=== PATIENT | male | born 1985 | race Caucasian/White ===

== ENCOUNTER 2018-09-15 03:40 | Inpatient (IN) | payer SELFPAY ==
[2018-09-15] MEDS ORDERED: Ketorolac 30 MG/ML SDV IVPUSH ONE ×2 (04:01→14:50)
[2018-09-15] MEDS ORDERED: Sodium Chloride 0.9% 1,000 ML IV ONE (04:01)
[2018-09-15] MEDS ORDERED: Diphtheria,Pertussis(Acell),Tetanus Vaccine 0.5 ML Syringe IM ONE (04:01)
[2018-09-15] MEDS ORDERED: Sodium Chloride 0.9% 2.5 ML Syringe FLUSH PRN (04:01)
[2018-09-15] MEDS ORDERED: Morphine 2 MG/ML Syringe IVPUSH ONE (04:01)
[2018-09-15] MEDS ORDERED: Sodium Chloride 0.9% 10 ML Syringe FLUSH PRN (04:01)
[2018-09-15] MEDS ORDERED: LORazepam 2 MG/ML SDV IVPUSH ONE (04:01)
[2018-09-15] MEDS ORDERED: Piperacillin/Tazobactam 3.375 GM in Sodium Chloride 0.9% 50 ML IV ONE (04:06)
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
[2018-09-15 04:39] LABS: CHLORIDE,CL 100 mmol/L (98-107); SODIUM,NA 136 mmol/L (136-148)
--- NOTE | 2018-09-15 04:51 | CR ---
INDICATION: prior sent. 1 image. shortness of breath. TECHNIQUE: Chest 1 view. COMPARISON: 02/10/09 FINDINGS: Cardiovascular and mediastinum: Heart size and vasculature are normal in caliber and appearance. Mediastinum is within normal limits. Lungs and pleural space: Lungs are clear. No sign of infiltrate or mass. No sign of pleural effusion. No pneumothorax. Bones and soft tissues: No significant findings. IMPRESSION: Unremarkable chest. Dictated by: Marbin Nieves MD @ 09/15/2018 04:48:31 (Electronically Signed)
[2018-09-15] MEDS ORDERED: HYDROmorphone 1 MG/ML Syringe IVPUSH ONE (05:29)
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
[2018-09-15] MEDS: Sodium Chloride 0.9% 1,000 ML IV SCH ×2 (11:43→22:07)
[2018-09-15] MEDS: Piperacillin/Tazobactam 3.375 GM in Sodium Chloride 0.9% 50 ML IV SCH ×3 (11:49→23:48)
--- NOTE | 2018-09-15 15:55 | CR ---
EXAM DATE: 09/15/18 PATIENT'S AGE: 33 Patient: SERINA CERRATO Facility: [place], [place] Site . Site : 1985 Study: XRay Extremity Right hand-09/15/2018 4:46:01 AM Ordering Physician: Ana Carlisle Final Report: INDICATION: Pain and swelling TECHNIQUE: Three views right hand COMPARISON: None FINDINGS: Bones: Alignment is normal. No fractures or bone lesions. Joint spaces: Unremarkable. Soft tissues: Soft tissue edema dorsal to the metacarpal bones. IMPRESSION: Soft tissue edema dorsal to the metacarpal bones. Dictated by Marbin Nieves MD @ 09/15/2018 4:49:36 AM Dictated by: Marbin Nieves MD @ 09/15/2018 04:49:41 (Electronic Signature) Report Signed by Proxy. [facility]OS[facility]ITALEmani
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
[2018-09-15] MEDS ORDERED: Acetaminophen/HYDROcodone 325-5 MG Tab PO PRN (16:31)
[2018-09-15] MEDS: Acetaminophen/HYDROcodone 325-5 MG Tab PO PRN ×2 (17:20→21:26)
[2018-09-16] MEDS: Acetaminophen/HYDROcodone 325-5 MG Tab PO PRN ×3 (01:57→19:51)
[2018-09-16] MEDS: Morphine 2 MG/ML Syringe IVPUSH PRN ×2 (04:39→07:27)
[2018-09-16] MEDS: Piperacillin/Tazobactam 3.375 GM in Sodium Chloride 0.9% 50 ML IV SCH ×4 (06:00→23:20)
[2018-09-16 06:48] LABS: CHLORIDE,CL 104 mmol/L (98-107); SODIUM,NA 136 mmol/L (136-148)
[2018-09-16] MEDS: Sodium Chloride 0.9% 1,000 ML IV SCH ×3 (07:32→23:19)
--- NOTE | 2018-09-16 09:09 | PCM.PN ---
- General Info Date of Service: 09/16/18 Subjective Update: The patient is a 33 year old male admitted for right hand cellulitis. He reports increased pain and swelling overnight. He tried to keep it in the sling , recommended by Dr. Ruiz, but found it hard. His white count is improving and blood cultures have been negative thus far. He denies chest pain, shortness of breath, abdominal pain, or fever/chills. - Review of Systems General: Reports: No Symptoms HEENT: Reports: No Symptoms Pulmonary: Reports: No Symptoms Gastrointestinal: Reports: No Symptoms Genitourinary: Reports: No Symptoms Musculoskeletal: Reports: Hand Pain Skin: Reports: Rash Neurological: Reports: No Symptoms Psychiatric: Reports: No Symptoms - Patient Data Vitals - Most Recent: Last Vital Signs Temp 98.2 F 09/16/18 08:00 Pulse 83 09/16/18 08:00 Resp 18 09/16/18 08:00 BP 122/60 09/16/18 08:00 Pulse Ox 99 09/16/18 08:00 Weight - Most Recent: 77.7 kg I&O - Last 24 Hours: Intake & Output 09/15/18 09/16/18 09/16/18 22:59 06:59 14:59 Intake Total 2115 1860 990 Output Total 300 425 Balance 1815 1435 990 Lab Results Last 24 Hours: Laboratory Results - last 24 hr 09/16/18 09/16/18 Range/Units 06:11 06:11 WBC 19.41 H (4.0-11.0) K/uL RBC 4.64 (4.50-5.90) M/uL Hgb 13.3 (13.0-17.0) g/dL Hct 39.6 (38.0-50.0) % MCV 85.3 (80.0-98.0) fL MCH 28.7 (27.0-32.0) pg MCHC 33.6 (31.0-37.0) g/dL RDW Std Deviation 43.6 (28.0-62.0) fl RDW Coeff of Lele 14 (11.0-15.0) % Plt Count 214 (150-400) K/uL MPV 8.80 (7.40-12.00) fL Neut % (Auto) 75.7 (48.0-80.0) % Lymph % (Auto) 7.6 L (16.0-40.0) % [place] % (Auto) 15.7 H (0.0-15.0) % Eos % (Auto) 0.9 (0.0-7.0) % Baso % (Auto) 0.1 (0.0-1.5) % Neut # (Auto) 14.7 H (1.4-5.7) K/uL Lymph # (Auto) 1.5 (0.6-2.4) K/uL [place] # (Auto) 3.0 H (0.0-0.8) K/uL Eos # (Auto) 0.2 (0.0-0.7) K/uL Baso # (Auto) 0.0 (0.0-0.1) K/uL Nucleated RBC % 0.0 /100WBC Nucleated RBCs # 0 K/uL Sodium 136 (136-148) mmol/L Potassium 4.3 (3.5-5.1) mmol/L Chloride 104 (98-107) mmol/L Carbon Dioxide 25.8 (21.0-32.0) mmol/L BUN 12 (7.0-18.0) mg/dL Creatinine 1.0 (0.8-1.3) mg/dL Est Cr Clr Drug Dosing 116.55 mL/min Estimated GFR (MDRD) > 60.0 ml/min Glucose 102 (74-106) mg/dL Calcium 8.1 L (8.5-10.1) mg/dL Total Bilirubin 0.5 (0.2-1.0) mg/dL AST 27 (15-37) IU/L ALT 72 H (14-63) IU/L Alkaline Phosphatase 88 (46-116) U/L Total Protein 6.4 (6.4-8.2) g/dL Albumin 2.3 L (3.4-5.0) g/dL Globulin 4.1 H (2.6-4.0) g/dL Albumin/Globulin Ratio 0.6 L (0.9-1.6) Tim Results Last 24 Hours: Microbiology 09/15/18 04:20 Aerobic Blood Culture - Preliminary Blood - Venous - Lab Draw NO GROWTH AFTER 1 DAY Anaerobic Blood Culture - Preliminary NO GROWTH AFTER 1 DAY 09/15/18 04:10 Aerobic Blood Culture - Preliminary Blood - Venous NO GROWTH AFTER 1 DAY Anaerobic Blood Culture - Preliminary NO GROWTH AFTER 1 DAY Med Orders - Current: Current Medications Hydrocodone Bitart/Acetaminophen ([place] 325-5 Mg) 2 tab PO Q4H PRN PRN Reason: Pain Last Admin: 09/16/18 01:57 Dose: 2 tab Piperacillin Sod/Tazobactam (Sod 3.375 gm/ Sodium Chloride) 50 mls @ 100 mls/ hr IV Q6H [facility] Last Admin: 09/16/18 06:00 Dose: 100 mls/hr Sodium Chloride (Normal Saline) 1,000 mls @ 125 mls/hr IV ASDIRECTED [facility] Last Admin: 09/16/18 07:32 Dose: 125 mls/hr Vancomycin HCl 1 gm/ Sodium (Chloride) 250 mls @ 250 mls/hr IV Q12H [facility] Last Admin: 09/16/18 00:17 Dose: 250 mls/hr Morphine Sulfate (Morphine) 1 mg IVPUSH Q2H PRN PRN Reason: Pain (severe 7-10) Last Admin: 09/16/18 07:27 Dose: 1 mg Sodium Chloride (Saline Flush) 10 ml FLUSH ASDIRECTED PRN PRN Reason: Keep Vein Open Sodium Chloride (Saline Flush) 2.5 ml FLUSH ASDIRECTED PRN PRN Reason: Keep Vein Open Vancomycin HCl (Pharmacy To Dose - Vancomycin) 1 dose .XX ASDIRECTED [facility] Discontinued Medications Hydrocodone Bitart/Acetaminophen ([place] 325-5 Mg) 1 tab PO Q4H PRN PRN Reason: Pain Diphtheria/Tetanus/Acell Pertussis (Adacel) 0.5 ml IM .ONCE ONE Stop: 09/15/18 04:02 Last Admin: 09/15/18 04:25 Dose: 0.5 ml Hydromorphone HCl (Dilaudid) 1 mg IVPUSH ONETIME ONE Stop: 09/15/18 05:30 Last Admin: 09/15/18 05:34 Dose: 1 mg Sodium Chloride (Normal Saline) 1,000 mls @ 999 mls/hr IV STAT ONE Stop: 09/15/18 05:01 Last Admin: 09/15/18 04:15 Dose: 999 mls/hr Vancomycin HCl 1 gm/ Sodium (Chloride) 250 mls @ 250 mls/hr IV ONETIME ONE Stop: 09/15/18 05:00 Last Admin: 09/15/18 04:24 Dose: 250 mls/hr Piperacillin Sod/Tazobactam (Sod 3.375 gm/ Sodium Chloride) 50 mls @ 100 mls/ hr IV ONETIME ONE Stop: 09/15/18 04:35 Last Admin: 09/15/18 05:26 Dose: 100 mls/hr Ketorolac Tromethamine (Toradol) 30 mg IVPUSH ONETIME ONE Stop: 09/15/18 04:02 Last Admin: 09/15/18 04:24 Dose: 30 mg Ketorolac Tromethamine (Toradol) 30 mg IVPUSH ONETIME ONE Stop: 09/15/18 14:51 Last Admin: 09/15/18 15:06 Dose: 30 mg Lorazepam (Ativan) 1 mg IVPUSH ONETIME ONE Stop: 09/15/18 04:02 Last Admin: 09/15/18 04:23 Dose: 1 mg Morphine Sulfate (Morphine) 2 mg IVPUSH ONETIME ONE Stop: 09/15/18 04:02 Last Admin: 09/15/18 04:23 Dose: 2 mg - Exam General: Alert, Oriented, Cooperative Lungs: Clear to Auscultation, Normal Respiratory Effort Cardiovascular: Regular Rate, Regular Rhythm GI/Abdominal Exam: Normal Bowel Sounds, Soft, Non-Tender, No Distention Extremities: No Pedal Edema Skin: Warm, Dry, Other (right hand cellulits not improving, erythema/swelling/ tenderness worse, streaking up arm improved) Neurological: No New Focal Deficit Psy/Mental Status: Alert, Normal Affect, Normal Mood - Problem List Review Problem List Initiated/Reviewed/Updated: Yes - My Orders Last 24 Hours: My Active Orders 09/15/18 11:23 Antiembolic Devices [RC] PER UNIT ROUTINE Intake and Output [RC] Q12H Vital Signs [RC] Q4H Sequential Compression Device [OM.PC] Routine Resuscitation Status Routine 09/15/18 11:30 Pharmacy to Dose - Vancomycin 1 dose .XX ASDIRECTED Piperacillin/Tazobactam [Piperacil-Tazobact] 3.375 gm Sodium Chloride 0.9% [ Normal Saline] 50 ml IV Q6H Sodium Chloride 0.9% [Normal Saline] 1,000 ml IV ASDIRECTED 09/15/18 12:30 Vancomycin [Vancocin] 1 gm Sodium Chloride 0.9% [Normal Saline] 250 ml IV Q12H - Plan Plan:: 1. Right hand cellulitis- white count improved but no real improvement in cellulitis, now with more swelling and pain. Continue Vancomycin and Zosyn, Blood cultures so far have been negative. Continue IVF. Dr. Ruiz consulted and plans to take to OR today for I&D. Continue norco/morphine for pain. Regular diet can be resumed once surgery is over. 2. Elevated LFTs- trending down, continue to follow
--- NOTE | 2018-09-16 09:12 | PCM.PN ---
- General Info Date of Service: 09/16/18 Admission Dx/Problem (Free Text): Admission Diagnosis/Problem Admission Diagnosis/Problem Cellulitis Functional Status: Reports: Pain Controlled, New Symptoms (more swelling and subjective pain) Pain Score: 6 - Review of Systems General: Reports: No Symptoms HEENT: Reports: No Symptoms Pulmonary: Reports: No Symptoms Genitourinary: Reports: No Symptoms Musculoskeletal: Reports: Arm Pain, Hand Pain Skin: Reports: Other (redness and swelling of the right hand dorsum. ) Neurological: Reports: No Symptoms Psychiatric: Reports: No Symptoms - Patient Data Vitals - Most Recent: Last Vital Signs Temp 98.2 F 09/16/18 08:00 Pulse 83 09/16/18 08:00 Resp 18 09/16/18 08:00 BP 122/60 09/16/18 08:00 Pulse Ox 99 09/16/18 08:00 Weight - Most Recent: 171 lb 4.787 oz I&O - Last 24 Hours: Intake & Output 09/15/18 09/16/18 09/16/18 23:59 07:59 15:59 Intake Total 2115 2850 Output Total 300 425 Balance 1815 2425 Lab Results Last 24 Hours: Laboratory Results - last 24 hr 09/16/18 09/16/18 Range/Units 06:11 06:11 WBC 19.41 H (4.0-11.0) K/uL RBC 4.64 (4.50-5.90) M/uL Hgb 13.3 (13.0-17.0) g/dL Hct 39.6 (38.0-50.0) % MCV 85.3 (80.0-98.0) fL MCH 28.7 (27.0-32.0) pg MCHC 33.6 (31.0-37.0) g/dL RDW Std Deviation 43.6 (28.0-62.0) fl RDW Coeff of Lele 14 (11.0-15.0) % Plt Count 214 (150-400) K/uL MPV 8.80 (7.40-12.00) fL Neut % (Auto) 75.7 (48.0-80.0) % Lymph % (Auto) 7.6 L (16.0-40.0) % [place] % (Auto) 15.7 H (0.0-15.0) % Eos % (Auto) 0.9 (0.0-7.0) % Baso % (Auto) 0.1 (0.0-1.5) % Neut # (Auto) 14.7 H (1.4-5.7) K/uL Lymph # (Auto) 1.5 (0.6-2.4) K/uL [place] # (Auto) 3.0 H (0.0-0.8) K/uL Eos # (Auto) 0.2 (0.0-0.7) K/uL Baso # (Auto) 0.0 (0.0-0.1) K/uL Nucleated RBC % 0.0 /100WBC Nucleated RBCs # 0 K/uL Sodium 136 (136-148) mmol/L Potassium 4.3 (3.5-5.1) mmol/L Chloride 104 (98-107) mmol/L Carbon Dioxide 25.8 (21.0-32.0) mmol/L BUN 12 (7.0-18.0) mg/dL Creatinine 1.0 (0.8-1.3) mg/dL Est Cr Clr Drug Dosing 116.55 mL/min Estimated GFR (MDRD) > 60.0 ml/min Glucose 102 (74-106) mg/dL Calcium 8.1 L (8.5-10.1) mg/dL Total Bilirubin 0.5 (0.2-1.0) mg/dL AST 27 (15-37) IU/L ALT 72 H (14-63) IU/L Alkaline Phosphatase 88 (46-116) U/L Total Protein 6.4 (6.4-8.2) g/dL Albumin 2.3 L (3.4-5.0) g/dL Globulin 4.1 H (2.6-4.0) g/dL Albumin/Globulin Ratio 0.6 L (0.9-1.6) Tim Results Last 24 Hours: Microbiology 09/15/18 04:20 Aerobic Blood Culture - Preliminary Blood - Venous - Lab Draw NO GROWTH AFTER 1 DAY Anaerobic Blood Culture - Preliminary NO GROWTH AFTER 1 DAY 09/15/18 04:10 Aerobic Blood Culture - Preliminary Blood - Venous NO GROWTH AFTER 1 DAY Anaerobic Blood Culture - Preliminary NO GROWTH AFTER 1 DAY Med Orders - Current: Current Medications Hydrocodone Bitart/Acetaminophen ([place] 325-5 Mg) 2 tab PO Q4H PRN PRN Reason: Pain Last Admin: 09/16/18 01:57 Dose: 2 tab Piperacillin Sod/Tazobactam (Sod 3.375 gm/ Sodium Chloride) 50 mls @ 100 mls/ hr IV Q6H [facility] Last Admin: 09/16/18 06:00 Dose: 100 mls/hr Sodium Chloride (Normal Saline) 1,000 mls @ 125 mls/hr IV ASDIRECTED [facility] Last Admin: 09/16/18 07:32 Dose: 125 mls/hr Vancomycin HCl 1 gm/ Sodium (Chloride) 250 mls @ 250 mls/hr IV Q12H [facility] Last Admin: 09/16/18 00:17 Dose: 250 mls/hr Morphine Sulfate (Morphine) 1 mg IVPUSH Q2H PRN PRN Reason: Pain (severe 7-10) Last Admin: 09/16/18 07:27 Dose: 1 mg Sodium Chloride (Saline Flush) 10 ml FLUSH ASDIRECTED PRN PRN Reason: Keep Vein Open Sodium Chloride (Saline Flush) 2.5 ml FLUSH ASDIRECTED PRN PRN Reason: Keep Vein Open Vancomycin HCl (Pharmacy To Dose - Vancomycin) 1 dose .XX ASDIRECTED [facility] Discontinued Medications Hydrocodone Bitart/Acetaminophen ([place] 325-5 Mg) 1 tab PO Q4H PRN PRN Reason: Pain Diphtheria/Tetanus/Acell Pertussis (Adacel) 0.5 ml IM .ONCE ONE Stop: 09/15/18 04:02 Last Admin: 09/15/18 04:25 Dose: 0.5 ml Hydromorphone HCl (Dilaudid) 1 mg IVPUSH ONETIME ONE Stop: 09/15/18 05:30 Last Admin: 09/15/18 05:34 Dose: 1 mg Sodium Chloride (Normal Saline) 1,000 mls @ 999 mls/hr IV STAT ONE Stop: 09/15/18 05:01 Last Admin: 09/15/18 04:15 Dose: 999 mls/hr Vancomycin HCl 1 gm/ Sodium (Chloride) 250 mls @ 250 mls/hr IV ONETIME ONE Stop: 09/15/18 05:00 Last Admin: 09/15/18 04:24 Dose: 250 mls/hr Piperacillin Sod/Tazobactam (Sod 3.375 gm/ Sodium Chloride) 50 mls @ 100 mls/ hr IV ONETIME ONE Stop: 09/15/18 04:35 Last Admin: 09/15/18 05:26 Dose: 100 mls/hr Ketorolac Tromethamine (Toradol) 30 mg IVPUSH ONETIME ONE Stop: 09/15/18 04:02 Last Admin: 09/15/18 04:24 Dose: 30 mg Ketorolac Tromethamine (Toradol) 30 mg IVPUSH ONETIME ONE Stop: 09/15/18 14:51 Last Admin: 09/15/18 15:06 Dose: 30 mg Lorazepam (Ativan) 1 mg IVPUSH ONETIME ONE Stop: 09/15/18 04:02 Last Admin: 09/15/18 04:23 Dose: 1 mg Morphine Sulfate (Morphine) 2 mg IVPUSH ONETIME ONE Stop: 09/15/18 04:02 Last Admin: 09/15/18 04:23 Dose: 2 mg - Exam General: Alert, Oriented, Cooperative, No Acute Distress HEENT: Pupils Equal, EOMI Lungs: Clear to Auscultation, Normal Respiratory Effort Cardiovascular: Regular Rate, Regular Rhythm Extremities: Joint Swelling, Arm Pain, Increased Warmth, Redness Peripheral Pulses: 4+: Radial (R) Skin: Warm, Dry, Other (redness and swelling with previous incision now with some softening. ) Neurological: No New Focal Deficit Psy/Mental Status: Alert, Normal Affect, Normal Mood. No: Agitated - Problem List & Annotations (1) Cellulitis SNOMED Code(s): 527966505 Code(s): L03.90 - CELLULITIS, UNSPECIFIED Status: Acute Current Visit: Yes Qualifiers: Qualified Code(s): L03.113 - Cellulitis of right upper limb - Problem List Review Problem List Initiated/Reviewed/Updated: Yes - My Orders Last 24 Hours: My Active Orders 09/15/18 16:28 Acetaminophen/HYDROcodone [[place] 325-5 MG] 2 tab PO Q4H PRN Morphine 1 mg IVPUSH Q2H PRN 09/16/18 Breakfast NPO [Nothing Per Oral Diet] [DIET] - Assessment Assessment:: worsening cellulitis with likely deep space infection into the mcp joint area. Failed conservative measures and though lymphangitic involvement better the dorsal hand infection is significantly more swollen and red. Plan I and D in the operating room with copious irrigation, cultures and continued IV antibiotics post op. - Plan Plan:: Continue Vancomycin and Zosyn To the OR for I and D this am with copious washout. NPO since midnight but sips with medications OK Continue elevation Risks benefits and alternatives discussed with him and informed consent obtained. All questions answered.
[2018-09-16] MEDS ORDERED: Bupivacaine 0.25%/EPINEPHrine 1:200,000 10 ML SDV ONE (10:15)
[2018-09-16] MEDS ORDERED: Ondansetron 4 MG/2 ML SDV ONE (10:36)
[2018-09-16] MEDS ORDERED: Lidocaine 2% 5 ML SDV ONE (10:36)
[2018-09-16] MEDS ORDERED: Ketorolac 30 MG/ML SDV ONE (10:36)
[2018-09-16] MEDS ORDERED: Dexamethasone 4 MG/ML 5 ML MDV ONE (10:36)
[2018-09-16] MEDS ORDERED: fentaNYL 100 MCG/2 ML SDV ONE (10:37)
[2018-09-16] MEDS ORDERED: Propofol 200 MG/20 ML SDV ONE (10:37)
[2018-09-16] MEDS ORDERED: Midazolam 1 MG/ML 2 ML SDV ONE (10:37)
--- NOTE | 2018-09-16 11:19 | PCM.PREANE ---
Preanesthetic Assessment - Anesthesia/Transfusion/Family Hx Transfusion History: Prior Transfusion Without Reaction - Review of Systems General: No Symptoms Cardiovascular: No Symptoms Neurological: No Symptoms Other: Reports: None - Physical Assessment NPO Status Date: 09/15/18 NPO Status Time: 23:55 O2 Sat by Pulse Oximetry: 99 Respiratory Rate: 18 Vital Signs: Last Vital Signs Temp 36.8 C 09/16/18 08:00 Pulse 83 09/16/18 08:00 Resp 18 09/16/18 08:00 BP 122/60 09/16/18 08:00 Pulse Ox 99 09/16/18 08:00 Height: 1.88 m Weight: 77.7 kg ASA Class: 2E Mental Status: Alert & Oriented x3 Airway Class: Mallampati = 1 Dentition: Reports: Normal Dentition Lungs: Clear to Auscultation - Lab Values: Laboratory Last Values WBC 19.41 K/uL (4.0-11.0) H 09/16/18 06:11 RBC 4.64 M/uL (4.50-5.90) 09/16/18 06:11 Hgb 13.3 g/dL (13.0-17.0) 09/16/18 06:11 Hct 39.6 % (38.0-50.0) 09/16/18 06:11 MCV 85.3 fL (80.0-98.0) 09/16/18 06:11 MCH 28.7 pg (27.0-32.0) 09/16/18 06:11 MCHC 33.6 g/dL (31.0-37.0) 09/16/18 06:11 RDW Std Deviation 43.6 fl (28.0-62.0) 09/16/18 06:11 RDW Coeff of Lele 14 % (11.0-15.0) 09/16/18 06:11 Plt Count 214 K/uL (150-400) 09/16/18 06:11 MPV 8.80 fL (7.40-12.00) 09/16/18 06:11 Neut % (Auto) 75.7 % (48.0-80.0) 09/16/18 06:11 Lymph % (Auto) 7.6 % (16.0-40.0) L 09/16/18 06:11 [place] % (Auto) 15.7 % (0.0-15.0) H 09/16/18 06:11 Eos % (Auto) 0.9 % (0.0-7.0) 09/16/18 06:11 Baso % (Auto) 0.1 % (0.0-1.5) 09/16/18 06:11 Neut # (Auto) 14.7 K/uL (1.4-5.7) H 09/16/18 06:11 Lymph # (Auto) 1.5 K/uL (0.6-2.4) 09/16/18 06:11 [place] # (Auto) 3.0 K/uL (0.0-0.8) H 09/16/18 06:11 Eos # (Auto) 0.2 K/uL (0.0-0.7) 09/16/18 06:11 Baso # (Auto) 0.0 K/uL (0.0-0.1) 09/16/18 06:11 Add Manual Diff YES 09/15/18 04:10 Neutrophils % (Manual) 75 % (48.0-80.0) 09/15/18 04:10 Band Neutrophils % 5 % 09/15/18 04:10 Lymphocytes % (Manual) 9 % (16.0-40.0) L 09/15/18 04:10 Monocytes % (Manual) 11 % (0.0-15.0) 09/15/18 04:10 Nucleated RBC % 0.0 /100WBC 09/16/18 06:11 Absolute Seg Neuts 19.4 (1.4-5.7) H 09/15/18 04:10 Band Neutrophils # 1.3 09/15/18 04:10 Lymphocytes # (Manual) 2.3 (0.6-2.4) 09/15/18 04:10 Monocytes # (Manual) 2.8 (0.0-0.8) H 09/15/18 04:10 Nucleated RBCs # 0 K/uL 09/16/18 06:11 INR 0.99 09/15/18 04:10 Lactate 1.1 mmol/L (0.20-2.00) 09/15/18 04:10 Sodium 136 mmol/L (136-148) 09/16/18 06:11 Potassium 4.3 mmol/L (3.5-5.1) 09/16/18 06:11 Chloride 104 mmol/L (98-107) 09/16/18 06:11 Carbon Dioxide 25.8 mmol/L (21.0-32.0) 09/16/18 06:11 BUN 12 mg/dL (7.0-18.0) 09/16/18 06:11 Creatinine 1.0 mg/dL (0.8-1.3) 09/16/18 06:11 Est Cr Clr Drug Dosing 116.55 mL/min 09/16/18 06:11 Estimated GFR (MDRD) > 60.0 ml/min 09/16/18 06:11 Glucose 102 mg/dL (74-106) 09/16/18 06:11 Calcium 8.1 mg/dL (8.5-10.1) L 09/16/18 06:11 Total Bilirubin 0.5 mg/dL (0.2-1.0) 09/16/18 06:11 AST 27 IU/L (15-37) 09/16/18 06:11 ALT 72 IU/L (14-63) H 09/16/18 06:11 Alkaline Phosphatase 88 U/L (46-116) 09/16/18 06:11 Troponin I < 0.050 ng/mL (0.000-0.056) 09/15/18 04:10 Total Protein 6.4 g/dL (6.4-8.2) 09/16/18 06:11 Albumin 2.3 g/dL (3.4-5.0) L 09/16/18 06:11 Globulin 4.1 g/dL (2.6-4.0) H 09/16/18 06:11 Albumin/Globulin Ratio 0.6 (0.9-1.6) L 09/16/18 06:11 Urine Color YELLOW 09/15/18 05:10 Urine Appearance CLEAR 09/15/18 05:10 Urine pH 6.0 (5.0-8.0) 09/15/18 05:10 Ur Specific [place] 1.010 (1.001-1.035) 09/15/18 05:10 Urine Protein NEGATIVE mg/dL (NEGATIVE) 09/15/18 05:10 Urine Glucose (UA) NEGATIVE mg/dL (NEGATIVE) 09/15/18 05:10 Urine Ketones NEGATIVE mg/dL (NEGATIVE) 09/15/18 05:10 Urine Occult Blood NEGATIVE (NEGATIVE) 09/15/18 05:10 Urine Nitrite NEGATIVE (NEGATIVE) 09/15/18 05:10 Urine Bilirubin NEGATIVE (NEGATIVE) 09/15/18 05:10 Urine Urobilinogen 0.2 EU/dL (<2.0) 09/15/18 05:10 Ur Leukocyte Esterase NEGATIVE (NEGATIVE) 09/15/18 05:10 Urine Opiates Screen POSITIVE (NEGATIVE) 09/15/18 05:10 Ur Oxycodone Screen NEGATIVE (NEGATIVE) 09/15/18 05:10 Urine Methadone Screen NEGATIVE (NEGATIVE) 09/15/18 05:10 Ur Barbiturates Screen NEGATIVE (NEGATIVE) 09/15/18 05:10 Ur Phencyclidine Scrn NEGATIVE (NEGATIVE) 09/15/18 05:10 Ur Amphetamine Screen POSITIVE (NEGATIVE) 09/15/18 05:10 U Methamphetamines Scrn POSITIVE (NEGATIVE) 09/15/18 05:10 U Benzodiazepines Scrn NEGATIVE (NEGATIVE) 09/15/18 05:10 U Cocaine Metab Screen NEGATIVE (NEGATIVE) 09/15/18 05:10 U Marijuana (THC) Screen POSITIVE (NEGATIVE) 09/15/18 05:10 - Allergies Allergies/Adverse Reactions: Allergies Allergy/AdvReac Type Severity Reaction Status Date / Time No Known Allergies Allergy Verified 09/15/18 07:23 - Acknowledgements Anesthesia Type Planned: General Anesthesia Pt an Appropriate Candidate for the Planned Anesthesia: Yes Alternatives and Risks of Anesthesia Discussed w Pt/Guardian: Yes Pt/Guardian Understands and Agrees with Anesthesia Plan: Yes PreAnesthesia Questionnaire - Past Health History Medical/Surgical History: Denies Medical/Surgical History HEENT History: Reports: None Cardiovascular History: Reports: None Respiratory History: Reports: None Gastrointestinal History: Reports: None Genitourinary History: Reports: None Musculoskeletal History: Reports: None Neurological History: Reports: None Psychiatric History: Reports: ADHD (as a child), Addiction Endocrine/Metabolic History: Reports: None Hematologic History: Reports: None Immunologic History: Reports: None Oncologic (Cancer) History: Reports: None Dermatologic History: Reports: None - Infectious Disease History Infectious Disease History: Reports: MRSA - Past Surgical History Musculoskeletal Surgical History: Reports: Other (See Below) Other Musculoskeletal Surgeries/Procedures:: hand. states bilat tendon repair - SUBSTANCE USE Smoking Status *Q: Current Every Day Smoker Tobacco Use Within Last Twelve Months: Cigarettes Recreational Drug Use History: Yes Recreational Drug Type: Reports: Marijuana/Hashish, Methamphetamine - HOME MEDS Home Medications: Home Meds . [No Known Home Meds] 05/17/16 [History] - CURRENT (IN HOUSE) MEDS Current Meds: Current Medications Hydrocodone Bitart/Acetaminophen ([place] 325-5 Mg) 2 tab PO Q4H PRN PRN Reason: Pain Last Admin: 09/16/18 09:32 Dose: 2 tab Piperacillin Sod/Tazobactam (Sod 3.375 gm/ Sodium Chloride) 50 mls @ 100 mls/ hr IV Q6H [facility] Last Admin: 09/16/18 06:00 Dose: 100 mls/hr Sodium Chloride (Normal Saline) 1,000 mls @ 125 mls/hr IV ASDIRECTED [facility] Last Admin: 09/16/18 07:32 Dose: 125 mls/hr Vancomycin HCl 1 gm/ Sodium (Chloride) 250 mls @ 250 mls/hr IV Q12H [facility] Last Admin: 09/16/18 00:17 Dose: 250 mls/hr Morphine Sulfate (Morphine) 1 mg IVPUSH Q2H PRN PRN Reason: Pain (severe 7-10) Last Admin: 09/16/18 07:27 Dose: 1 mg Sodium Chloride (Saline Flush) 10 ml FLUSH ASDIRECTED PRN PRN Reason: Keep Vein Open Sodium Chloride (Saline Flush) 2.5 ml FLUSH ASDIRECTED PRN PRN Reason: Keep Vein Open Vancomycin HCl (Pharmacy To Dose - Vancomycin) 1 dose .XX ASDIRECTED [facility] Discontinued Medications Hydrocodone Bitart/Acetaminophen ([place] 325-5 Mg) 1 tab PO Q4H PRN PRN Reason: Pain Bupivacaine HCl/Epinephrine Bitart ([place] 0.25%/Epinephrine 1:200,000) Confirm Administered Dose 20 ml .ROUTE .STK-MED ONE Stop: 09/16/18 10:16 Dexamethasone (Dexamethasone) Confirm Administered Dose 20 mg .ROUTE .STK-MED ONE Stop: 09/16/18 10:37 Diphtheria/Tetanus/Acell Pertussis (Adacel) 0.5 ml IM .ONCE ONE Stop: 09/15/18 04:02 Last Admin: 09/15/18 04:25 Dose: 0.5 ml Fentanyl (Sublimaze) Confirm Administered Dose 100 mcg .ROUTE .STK-MED ONE Stop: 09/16/18 10:38 Hydromorphone HCl (Dilaudid) 1 mg IVPUSH ONETIME ONE Stop: 09/15/18 05:30 Last Admin: 09/15/18 05:34 Dose: 1 mg Sodium Chloride (Normal Saline) 1,000 mls @ 999 mls/hr IV STAT ONE Stop: 09/15/18 05:01 Last Admin: 09/15/18 04:15 Dose: 999 mls/hr Vancomycin HCl 1 gm/ Sodium (Chloride) 250 mls @ 250 mls/hr IV ONETIME ONE Stop: 09/15/18 05:00 Last Admin: 09/15/18 04:24 Dose: 250 mls/hr Piperacillin Sod/Tazobactam (Sod 3.375 gm/ Sodium Chloride) 50 mls @ 100 mls/ hr IV ONETIME ONE Stop: 09/15/18 04:35 Last Admin: 09/15/18 05:26 Dose: 100 mls/hr Ketorolac Tromethamine (Toradol) 30 mg IVPUSH ONETIME ONE Stop: 09/15/18 04:02 Last Admin: 09/15/18 04:24 Dose: 30 mg Ketorolac Tromethamine (Toradol) 30 mg IVPUSH ONETIME ONE Stop: 09/15/18 14:51 Last Admin: 09/15/18 15:06 Dose: 30 mg Ketorolac Tromethamine (Toradol) Confirm Administered Dose 30 mg .ROUTE .STK- MED ONE Stop: 09/16/18 10:37 Lidocaine (Xylocaine-Mpf 2%) Confirm Administered Dose 5 ml .ROUTE .STK-MED ONE Stop: 09/16/18 10:37 Lorazepam (Ativan) 1 mg IVPUSH ONETIME ONE Stop: 09/15/18 04:02 Last Admin: 09/15/18 04:23 Dose: 1 mg Midazolam HCl (Versed 1 Mg/Ml) Confirm Administered Dose 2 mg .ROUTE .STK-MED ONE Stop: 09/16/18 10:38 Morphine Sulfate (Morphine) 2 mg IVPUSH ONETIME ONE Stop: 09/15/18 04:02 Last Admin: 09/15/18 04:23 Dose: 2 mg Ondansetron HCl (Zofran) Confirm Administered Dose 8 mg .ROUTE .STK-MED ONE Stop: 09/16/18 10:37 Propofol (Diprivan 20 Ml) Confirm Administered Dose 200 mg .ROUTE .STK-MED ONE Stop: 09/16/18 10:38
--- NOTE | 2018-09-16 12:10 | PCM.POSTAN ---
POST ANESTHESIA ASSESSMENT - MENTAL STATUS Mental Status: Alert - VITAL SIGNS Pulse Rate: 76 SaO2: 98 Resp Rate: 12 Blood Pressure: 100/45 - RESPIRATORY Respiratory Status: Respiratory Rate WNL, Airway Patent, O2 Saturation Stable - CARDIOVASCULAR CV Status: Pulse Rate WNL, Blood Pressure Stable - GASTROINTESTINAL GI Status: No Symptoms - POST OP HYDRATION Hydration Status: Adequate & Stable
[2018-09-16] MEDS ORDERED: Meperidine PF 25 MG/ML Syringe IVPUSH PRN (12:11)
[2018-09-16] MEDS ORDERED: Meperidine PF 25 MG/ML Syringe IV PRN (12:11)
[2018-09-16] MEDS ORDERED: hydrALAZINE 20 MG/ML SDV IVPUSH PRN ×2 (12:11)
[2018-09-16] MEDS ORDERED: Labetalol 20 MG/4 ML Syringe IVPUSH PRN (12:11)
[2018-09-16] MEDS ORDERED: Albuterol 0.083% 2.5 MG/3 ML Neb Soln NEB PRN (12:11)
[2018-09-16] MEDS ORDERED: fentaNYL 100 MCG/2 ML SDV IVPUSH PRN (12:11)
[2018-09-16] MEDS ORDERED: Scopolamine 1.5 MG Transdermal Patch TRDERM PRN (12:11)
[2018-09-16] MEDS ORDERED: Promethazine 25 MG/ML SDV IM PRN (12:11)
[2018-09-16] MEDS ORDERED: Naloxone 0.4 MG/ML Syringe IVPUSH PRN (12:11)
[2018-09-16] MEDS ORDERED: HYDROmorphone 2 MG/ML Syringe IVPUSH PRN (12:11)
[2018-09-16] MEDS ORDERED: Ondansetron 4 MG/2 ML SDV IVPUSH PRN (12:11)
[2018-09-16] MEDS ORDERED: Morphine 4 MG/ML Syringe IVPUSH PRN (12:11)
[2018-09-16] MEDS ORDERED: Metoclopramide 10 MG/2 ML SDV IVPUSH PRN (12:11)
[2018-09-16] MEDS ORDERED: Acetaminophen 325 MG Tab PO ONE (12:11)
[2018-09-16] MEDS ORDERED: Acetaminophen/HYDROcodone 325-5 MG Tab PO PRN (12:11)
[2018-09-16] MEDS ORDERED: Atropine 0.1 MG/ML 10 ML Syringe IVPUSH PRN (12:11)
--- NOTE | 2018-09-16 16:15 | PCM.OPNOTE ---
- General Post-Op/Procedure Note Date of Surgery/Procedure: 09/16/18 Operative Procedure(s): Incision and drainage of complex infection right hand - tenosynovitis with right index MCP joint involvement. Pre Op Diagnosis: right hand infection - tenosynovitis Post-Op Diagnosis: Same Anesthesia Technique: General LMA, Local Primary Surgeon: Lisa Ruiz Complications: None Condition: Fair Free Text/Narrative:: dishwater pus/fluid with cultures obtained Intake & Output 09/16/18 09/16/18 09/16/18 07:59 15:59 23:59 Intake Total 2850 900 Output Total 425 Balance 2426 900
--- NOTE | 2018-09-16 16:41 | PCM.SN ---
- Free Text/Narrative Note: feeling better and continues to have improved pain. No other issues. Will start soaks later today.
--- NOTE | 2018-09-16 20:02 | PCM48HPAN ---
Post Anesthesia Note - EVALUATION WITHIN 48HRS OF ANESTHETIC Vital Signs in Normal Range: Yes Patient Participated in Evaluation: Yes Respiratory Function Stable: Yes Airway Patent: Yes Cardiovascular Function Stable: Yes Hydration Status Stable: Yes Pain Control Satisfactory: Yes Nausea and Vomiting Control Satisfactory: Yes Pulse Rate: 76 Resp Rate: 16 Blood Pressure: 100/45 - COMMENTS/OBSERVATIONS Free Text/Narrative:: pt comfortable at this time. no signs or symptoms of anesthesia related problems.
[2018-09-17] MEDS: Acetaminophen/HYDROcodone 325-5 MG Tab PO PRN ×4 (00:03→22:24)
[2018-09-17] MEDS: Piperacillin/Tazobactam 3.375 GM in Sodium Chloride 0.9% 50 ML IV SCH ×4 (05:21→23:06)
[2018-09-17 07:02] LABS: CHLORIDE,CL 108 mmol/L (98-107); SODIUM,NA 141 mmol/L (136-148)
[2018-09-17] MEDS: Sodium Chloride 0.9% 1,000 ML IV SCH (09:37)
--- NOTE | 2018-09-17 10:02 | PCM.PN ---
- General Info Date of Service: 09/17/18 - Review of Systems Systems Review Comment:: pain has improved, swelling is stable - Patient Data Vitals - Most Recent: Last Vital Signs Temp 36.2 C 09/17/18 07:40 Pulse 88 09/17/18 07:40 Resp 16 09/17/18 07:40 BP 131/63 09/17/18 07:40 Pulse Ox 97 09/17/18 07:40 Weight - Most Recent: 77.7 kg I&O - Last 24 Hours: Intake & Output 09/16/18 09/17/18 09/17/18 22:59 06:59 14:59 Intake Total 1407 2659 Output Total 1600 1400 Balance -193 1259 Lab Results Last 24 Hours: Laboratory Results - last 24 hr 09/17/18 09/17/18 Range/Units 06:23 06:23 WBC 26.29 H (4.0-11.0) K/uL RBC 4.40 L (4.50-5.90) M/uL Hgb 12.7 L (13.0-17.0) g/dL Hct 37.0 L (38.0-50.0) % MCV 84.1 (80.0-98.0) fL MCH 28.9 (27.0-32.0) pg MCHC 34.3 (31.0-37.0) g/dL RDW Std Deviation 42.3 (28.0-62.0) fl RDW Coeff of Lele 14 (11.0-15.0) % Plt Count 244 (150-400) K/uL MPV 8.90 (7.40-12.00) fL Neut % (Auto) 82.9 H (48.0-80.0) % Lymph % (Auto) 4.3 L (16.0-40.0) % [place] % (Auto) 12.7 (0.0-15.0) % Eos % (Auto) 0.0 (0.0-7.0) % Baso % (Auto) 0.1 (0.0-1.5) % Neut # (Auto) 21.8 H (1.4-5.7) K/uL Lymph # (Auto) 1.1 (0.6-2.4) K/uL [place] # (Auto) 3.3 H (0.0-0.8) K/uL Eos # (Auto) 0.0 (0.0-0.7) K/uL Baso # (Auto) 0.0 (0.0-0.1) K/uL Nucleated RBC % 0.0 /100WBC Nucleated RBCs # 0 K/uL Sodium 141 (136-148) mmol/L Potassium 4.3 (3.5-5.1) mmol/L Chloride 108 H (98-107) mmol/L Carbon Dioxide 25.6 (21.0-32.0) mmol/L BUN 11 (7.0-18.0) mg/dL Creatinine 0.9 (0.8-1.3) mg/dL Est Cr Clr Drug Dosing 129.50 mL/min Estimated GFR (MDRD) > 60.0 ml/min Glucose 125 H (74-106) mg/dL Calcium 8.3 L (8.5-10.1) mg/dL Total Bilirubin 0.2 (0.2-1.0) mg/dL AST 18 (15-37) IU/L ALT 63 (14-63) IU/L Alkaline Phosphatase 82 (46-116) U/L Total Protein 6.4 (6.4-8.2) g/dL Albumin 2.2 L (3.4-5.0) g/dL Globulin 4.2 H (2.6-4.0) g/dL Albumin/Globulin Ratio 0.5 L (0.9-1.6) Tim Results Last 24 Hours: Microbiology 09/16/18 10:33 Gram Stain - Final Hand, Right Wound Culture - Preliminary NO GROWTH AFTER 1 DAY 09/15/18 04:20 Aerobic Blood Culture - Preliminary Blood - Venous - Lab Draw NO GROWTH AFTER 2 DAYS Anaerobic Blood Culture - Preliminary NO GROWTH AFTER 2 DAYS 09/15/18 04:10 Aerobic Blood Culture - Preliminary Blood - Venous NO GROWTH AFTER 2 DAYS Anaerobic Blood Culture - Preliminary NO GROWTH AFTER 2 DAYS Med Orders - Current: Current Medications Hydrocodone Bitart/Acetaminophen ([place] 325-5 Mg) 2 tab PO Q4H PRN PRN Reason: Pain Last Admin: 09/17/18 05:20 Dose: 2 tab Albuterol (Proventil Neb Soln) 2.5 mg NEB Q6HRRT PRN PRN Reason: Wheezing Atropine Sulfate (Atropine 0.1 Mg/Ml) 0.4 mg IVPUSH Q5M PRN PRN Reason: Bradycardia Fentanyl (Sublimaze) 50 mcg IVPUSH Q5M PRN PRN Reason: Pain (severe 7-10) Stop: 09/17/18 12:11 Hydralazine HCl (Apresoline) 10 mg IVPUSH ONETIME PRN PRN Reason: Hypertension Hydralazine HCl (Apresoline) 5 mg IVPUSH ONETIME PRN PRN Reason: Hypertension Hydromorphone HCl (Dilaudid) 0.25 mg IVPUSH Q10M PRN PRN Reason: Pain (severe 7-10) Stop: 09/17/18 12:11 Piperacillin Sod/Tazobactam (Sod 3.375 gm/ Sodium Chloride) 50 mls @ 100 mls/ hr IV Q6H COUNTS INCLUDE 234 BEDS AT THE [facility] Last Admin: 09/17/18 05:21 Dose: 100 mls/hr Sodium Chloride (Normal Saline) 1,000 mls @ 125 mls/hr IV ASDIRECTED COUNTS INCLUDE 234 BEDS AT THE [facility] Last Admin: 09/17/18 09:37 Dose: 125 mls/hr Vancomycin HCl 1 gm/ Sodium (Chloride) 250 mls @ 250 mls/hr IV Q12H COUNTS INCLUDE 234 BEDS AT THE [facility] Last Admin: 09/17/18 00:04 Dose: 250 mls/hr Labetalol HCl (Normodyne) 10 mg IVPUSH Q6H PRN PRN Reason: Hypertension Stop: 09/17/18 12:11 Meperidine HCl (Demerol) 12.5 mg IVPUSH ONETIME PRN PRN Reason: Shivering Meperidine HCl (Demerol) 25 mg IV ONETIME PRN PRN Reason: Shivering Metoclopramide HCl (Reglan) 10 mg IVPUSH ONETIME PRN PRN Reason: Nausea Morphine Sulfate (Morphine) 1 mg IVPUSH Q2H PRN PRN Reason: Pain (severe 7-10) Last Admin: 09/16/18 07:27 Dose: 1 mg Morphine Sulfate (Morphine) 4 mg IVPUSH Q10M PRN PRN Reason: Pain (severe 7-10) Stop: 09/17/18 12:11 Naloxone HCl (Narcan) 0.1 mg IVPUSH ONETIME PRN PRN Reason: Respiratory Depression Ondansetron HCl (Zofran) 8 mg IVPUSH ONETIME PRN PRN Reason: Nausea Promethazine HCl (Phenergan) 12.5 mg IM ONETIME PRN PRN Reason: Nausea Scopolamine (Transderm-Scop) 1.5 mg TRDERM Q72H PRN PRN Reason: Nausea Sodium Chloride (Saline Flush) 10 ml FLUSH ASDIRECTED PRN PRN Reason: Keep Vein Open Sodium Chloride (Saline Flush) 2.5 ml FLUSH ASDIRECTED PRN PRN Reason: Keep Vein Open Vancomycin HCl (Pharmacy To Dose - Vancomycin) 1 dose .XX ASDIRECTED ZACARIAS Discontinued Medications Acetaminophen (Tylenol) 650 mg PO NOW ONE Stop: 09/16/18 12:12 Last Admin: 09/16/18 13:58 Dose: Not Given Hydrocodone Bitart/Acetaminophen ([place] 325-5 Mg) 1 tab PO Q4H PRN PRN Reason: Pain Hydrocodone Bitart/Acetaminophen ([place] 325-5 Mg) 2 tab PO Q6H PRN PRN Reason: Pain (moderate 4-6) Bupivacaine HCl/Epinephrine Bitart (Marcaine 0.25%/Epinephrine 1:200,000) Confirm Administered Dose 20 ml .ROUTE .STK-MED ONE Stop: 09/16/18 10:16 Dexamethasone (Dexamethasone) Confirm Administered Dose 20 mg .ROUTE .STK-MED ONE Stop: 09/16/18 10:37 Diphtheria/Tetanus/Acell Pertussis (Adacel) 0.5 ml IM .ONCE ONE Stop: 09/15/18 04:02 Last Admin: 09/15/18 04:25 Dose: 0.5 ml Fentanyl (Sublimaze) Confirm Administered Dose 100 mcg .ROUTE .STK-MED ONE Stop: 09/16/18 10:38 Hydromorphone HCl (Dilaudid) 1 mg IVPUSH ONETIME ONE Stop: 09/15/18 05:30 Last Admin: 09/15/18 05:34 Dose: 1 mg Sodium Chloride (Normal Saline) 1,000 mls @ 999 mls/hr IV STAT ONE Stop: 09/15/18 05:01 Last Admin: 09/15/18 04:15 Dose: 999 mls/hr Vancomycin HCl 1 gm/ Sodium (Chloride) 250 mls @ 250 mls/hr IV ONETIME ONE Stop: 09/15/18 05:00 Last Admin: 09/15/18 04:24 Dose: 250 mls/hr Piperacillin Sod/Tazobactam (Sod 3.375 gm/ Sodium Chloride) 50 mls @ 100 mls/ hr IV ONETIME ONE Stop: 09/15/18 04:35 Last Admin: 09/15/18 05:26 Dose: 100 mls/hr Ketorolac Tromethamine (Toradol) 30 mg IVPUSH ONETIME ONE Stop: 09/15/18 04:02 Last Admin: 09/15/18 04:24 Dose: 30 mg Ketorolac Tromethamine (Toradol) 30 mg IVPUSH ONETIME ONE Stop: 09/15/18 14:51 Last Admin: 09/15/18 15:06 Dose: 30 mg Ketorolac Tromethamine (Toradol) Confirm Administered Dose 30 mg .ROUTE .STK- MED ONE Stop: 09/16/18 10:37 Lidocaine (Xylocaine-Mpf 2%) Confirm Administered Dose 5 ml .ROUTE .STK-MED ONE Stop: 09/16/18 10:37 Lorazepam (Ativan) 1 mg IVPUSH ONETIME ONE Stop: 09/15/18 04:02 Last Admin: 09/15/18 04:23 Dose: 1 mg Midazolam HCl (Versed 1 Mg/Ml) Confirm Administered Dose 2 mg .ROUTE .STK-MED ONE Stop: 09/16/18 10:38 Morphine Sulfate (Morphine) 2 mg IVPUSH ONETIME ONE Stop: 09/15/18 04:02 Last Admin: 09/15/18 04:23 Dose: 2 mg Ondansetron HCl (Zofran) Confirm Administered Dose 8 mg .ROUTE .STK-MED ONE Stop: 09/16/18 10:37 Propofol (Diprivan 20 Ml) Confirm Administered Dose 200 mg .ROUTE .STK-MED ONE Stop: 09/16/18 10:38 - Exam General: Alert, Oriented Lungs: Clear to Auscultation, Normal Respiratory Effort Cardiovascular: Regular Rate, Regular Rhythm GI/Abdominal Exam: Soft, Non-Tender, No Distention Extremities: Other (no drainage from right hand wound, edema and erythema stable ) - Problem List Review Problem List Initiated/Reviewed/Updated: Yes - My Orders Last 24 Hours: My Active Orders 09/17/18 12:30 VANCOMYCIN TROUGH [CHEM] Routine - Plan Plan:: 33 yo male admitted for right hand cellutlits s/p I&D by Dr. Ruiz yesterday. WBC is26,290 today. Will continue IV antibiotics and wound care.
--- NOTE | 2018-09-17 11:31 | PCM.PN ---
- General Info Date of Service: 09/17/18 Admission Dx/Problem (Free Text): Admission Diagnosis/Problem Admission Diagnosis/Problem Cellulitis and hand tenosynovitis Subjective Update: overall his hand is looking much improved and less swollen. Dishwater fluid on surgical exploration and washout - likely strep type infection. Cultures negative unfortunately and fortunately as this usually indicated the correct antibiotics, but does not allow identification of the offending bacteria. Not unexpected to see an increase in the white count after surgical intervention and washout. Will monitor and recheck in am. Functional Status: Reports: Pain Controlled, Tolerating Diet, Ambulating. Denies: New Symptoms - Review of Systems General: Reports: No Symptoms. Denies: Fever, Chills HEENT: Reports: No Symptoms Musculoskeletal: Reports: Arm Pain (slightly more proximal to the wound, but overall improvement of the entire arm), Hand Pain (improved - complains of incisional rather than like yesterday with swelling and discomfort) Skin: Reports: Other (redness of the hand less ruborous and much improved. Some spread more proximally as expected after surgery and with normal immune reaction. Hand swelling much improved. ) Neurological: Reports: No Symptoms Psychiatric: Reports: No Symptoms - Patient Data Vitals - Most Recent: Last Vital Signs Temp 97.2 F 09/17/18 07:40 Pulse 88 09/17/18 07:40 Resp 16 09/17/18 07:40 BP 131/63 09/17/18 07:40 Pulse Ox 97 09/17/18 07:40 Weight - Most Recent: 171 lb 4.787 oz I&O - Last 24 Hours: Intake & Output 09/16/18 09/17/18 09/17/18 23:59 07:59 15:59 Intake Total 1407 2659 Output Total 1600 1400 Balance -193 1259 Lab Results Last 24 Hours: Laboratory Results - last 24 hr 09/17/18 09/17/18 Range/Units 06:23 06:23 WBC 26.29 H (4.0-11.0) K/uL RBC 4.40 L (4.50-5.90) M/uL Hgb 12.7 L (13.0-17.0) g/dL Hct 37.0 L (38.0-50.0) % MCV 84.1 (80.0-98.0) fL MCH 28.9 (27.0-32.0) pg MCHC 34.3 (31.0-37.0) g/dL RDW Std Deviation 42.3 (28.0-62.0) fl RDW Coeff of Lele 14 (11.0-15.0) % Plt Count 244 (150-400) K/uL MPV 8.90 (7.40-12.00) fL Neut % (Auto) 82.9 H (48.0-80.0) % Lymph % (Auto) 4.3 L (16.0-40.0) % [place] % (Auto) 12.7 (0.0-15.0) % Eos % (Auto) 0.0 (0.0-7.0) % Baso % (Auto) 0.1 (0.0-1.5) % Neut # (Auto) 21.8 H (1.4-5.7) K/uL Lymph # (Auto) 1.1 (0.6-2.4) K/uL [place] # (Auto) 3.3 H (0.0-0.8) K/uL Eos # (Auto) 0.0 (0.0-0.7) K/uL Baso # (Auto) 0.0 (0.0-0.1) K/uL Nucleated RBC % 0.0 /100WBC Nucleated RBCs # 0 K/uL Sodium 141 (136-148) mmol/L Potassium 4.3 (3.5-5.1) mmol/L Chloride 108 H (98-107) mmol/L Carbon Dioxide 25.6 (21.0-32.0) mmol/L BUN 11 (7.0-18.0) mg/dL Creatinine 0.9 (0.8-1.3) mg/dL Est Cr Clr Drug Dosing 129.50 mL/min Estimated GFR (MDRD) > 60.0 ml/min Glucose 125 H (74-106) mg/dL Calcium 8.3 L (8.5-10.1) mg/dL Total Bilirubin 0.2 (0.2-1.0) mg/dL AST 18 (15-37) IU/L ALT 63 (14-63) IU/L Alkaline Phosphatase 82 (46-116) U/L Total Protein 6.4 (6.4-8.2) g/dL Albumin 2.2 L (3.4-5.0) g/dL Globulin 4.2 H (2.6-4.0) g/dL Albumin/Globulin Ratio 0.5 L (0.9-1.6) White count bump is not unexpected after surgical intervention. Clinical picture improving and would follow up with labs in am and continued antibiotics. Tim Results Last 24 Hours: Microbiology 09/16/18 10:33 Gram Stain - Final Hand, Right Wound Culture - Preliminary NO GROWTH AFTER 1 DAY 09/15/18 04:20 Aerobic Blood Culture - Preliminary Blood - Venous - Lab Draw NO GROWTH AFTER 2 DAYS Anaerobic Blood Culture - Preliminary NO GROWTH AFTER 2 DAYS 09/15/18 04:10 Aerobic Blood Culture - Preliminary Blood - Venous NO GROWTH AFTER 2 DAYS Anaerobic Blood Culture - Preliminary NO GROWTH AFTER 2 DAYS Med Orders - Current: Current Medications Hydrocodone Bitart/Acetaminophen ([place] 325-5 Mg) 2 tab PO Q4H PRN PRN Reason: Pain Last Admin: 09/17/18 05:20 Dose: 2 tab Albuterol (Proventil Neb Soln) 2.5 mg NEB Q6HRRT PRN PRN Reason: Wheezing Atropine Sulfate (Atropine 0.1 Mg/Ml) 0.4 mg IVPUSH Q5M PRN PRN Reason: Bradycardia Fentanyl (Sublimaze) 50 mcg IVPUSH Q5M PRN PRN Reason: Pain (severe 7-10) Stop: 09/17/18 12:11 Hydralazine HCl (Apresoline) 10 mg IVPUSH ONETIME PRN PRN Reason: Hypertension Hydralazine HCl (Apresoline) 5 mg IVPUSH ONETIME PRN PRN Reason: Hypertension Hydromorphone HCl (Dilaudid) 0.25 mg IVPUSH Q10M PRN PRN Reason: Pain (severe 7-10) Stop: 09/17/18 12:11 Piperacillin Sod/Tazobactam (Sod 3.375 gm/ Sodium Chloride) 50 mls @ 100 mls/ hr IV Q6H [facility] Last Admin: 09/17/18 05:21 Dose: 100 mls/hr Sodium Chloride (Normal Saline) 1,000 mls @ 125 mls/hr IV ASDIRECTED ZACARIAS Last Admin: 09/17/18 09:37 Dose: 125 mls/hr Vancomycin HCl 1 gm/ Sodium (Chloride) 250 mls @ 250 mls/hr IV Q12H [facility] [place] Last Admin: 09/17/18 00:04 Dose: 250 mls/hr Labetalol HCl (Normodyne) 10 mg IVPUSH Q6H PRN PRN Reason: Hypertension Stop: 09/17/18 12:11 Meperidine HCl (Demerol) 12.5 mg IVPUSH ONETIME PRN PRN Reason: Shivering Meperidine HCl (Demerol) 25 mg IV ONETIME PRN PRN Reason: Shivering Metoclopramide HCl (Reglan) 10 mg IVPUSH ONETIME PRN PRN Reason: Nausea Morphine Sulfate (Morphine) 1 mg IVPUSH Q2H PRN PRN Reason: Pain (severe 7-10) Last Admin: 09/16/18 07:27 Dose: 1 mg Morphine Sulfate (Morphine) 4 mg IVPUSH Q10M PRN PRN Reason: Pain (severe 7-10) Stop: 09/17/18 12:11 Naloxone HCl (Narcan) 0.1 mg IVPUSH ONETIME PRN PRN Reason: Respiratory Depression Ondansetron HCl (Zofran) 8 mg IVPUSH ONETIME PRN PRN Reason: Nausea Promethazine HCl (Phenergan) 12.5 mg IM ONETIME PRN PRN Reason: Nausea Scopolamine (Transderm-Scop) 1.5 mg TRDERM Q72H PRN PRN Reason: Nausea Sodium Chloride (Saline Flush) 10 ml FLUSH ASDIRECTED PRN PRN Reason: Keep Vein Open Sodium Chloride (Saline Flush) 2.5 ml FLUSH ASDIRECTED PRN PRN Reason: Keep Vein Open Vancomycin HCl (Pharmacy To Dose - Vancomycin) 1 dose .XX ASDIRECTED [facility] Discontinued Medications Acetaminophen (Tylenol) 650 mg PO NOW ONE Stop: 09/16/18 12:12 Last Admin: 09/16/18 13:58 Dose: Not Given Hydrocodone Bitart/Acetaminophen ([place] 325-5 Mg) 1 tab PO Q4H PRN PRN Reason: Pain Hydrocodone Bitart/Acetaminophen ([place] 325-5 Mg) 2 tab PO Q6H PRN PRN Reason: Pain (moderate 4-6) Bupivacaine HCl/Epinephrine Bitart ([place] 0.25%/Epinephrine 1:200,000) Confirm Administered Dose 20 ml .ROUTE .STK-MED ONE Stop: 09/16/18 10:16 Dexamethasone (Dexamethasone) Confirm Administered Dose 20 mg .ROUTE .STK-MED ONE Stop: 09/16/18 10:37 Diphtheria/Tetanus/Acell Pertussis (Adacel) 0.5 ml IM .ONCE ONE Stop: 09/15/18 04:02 Last Admin: 09/15/18 04:25 Dose: 0.5 ml Fentanyl (Sublimaze) Confirm Administered Dose 100 mcg .ROUTE .STK-MED ONE Stop: 09/16/18 10:38 Hydromorphone HCl (Dilaudid) 1 mg IVPUSH ONETIME ONE Stop: 09/15/18 05:30 Last Admin: 09/15/18 05:34 Dose: 1 mg Sodium Chloride (Normal Saline) 1,000 mls @ 999 mls/hr IV STAT ONE Stop: 09/15/18 05:01 Last Admin: 09/15/18 04:15 Dose: 999 mls/hr Vancomycin HCl 1 gm/ Sodium (Chloride) 250 mls @ 250 mls/hr IV ONETIME ONE Stop: 09/15/18 05:00 Last Admin: 09/15/18 04:24 Dose: 250 mls/hr Piperacillin Sod/Tazobactam (Sod 3.375 gm/ Sodium Chloride) 50 mls @ 100 mls/ hr IV ONETIME ONE Stop: 09/15/18 04:35 Last Admin: 09/15/18 05:26 Dose: 100 mls/hr Ketorolac Tromethamine (Toradol) 30 mg IVPUSH ONETIME ONE Stop: 09/15/18 04:02 Last Admin: 09/15/18 04:24 Dose: 30 mg Ketorolac Tromethamine (Toradol) 30 mg IVPUSH ONETIME ONE Stop: 09/15/18 14:51 Last Admin: 09/15/18 15:06 Dose: 30 mg Ketorolac Tromethamine (Toradol) Confirm Administered Dose 30 mg .ROUTE .STK- MED ONE Stop: 09/16/18 10:37 Lidocaine (Xylocaine-Mpf 2%) Confirm Administered Dose 5 ml .ROUTE .STK-MED ONE Stop: 09/16/18 10:37 Lorazepam (Ativan) 1 mg IVPUSH ONETIME ONE Stop: 09/15/18 04:02 Last Admin: 09/15/18 04:23 Dose: 1 mg Midazolam HCl (Versed 1 Mg/Ml) Confirm Administered Dose 2 mg .ROUTE .STK-MED ONE Stop: 09/16/18 10:38 Morphine Sulfate (Morphine) 2 mg IVPUSH ONETIME ONE Stop: 09/15/18 04:02 Last Admin: 09/15/18 04:23 Dose: 2 mg Ondansetron HCl (Zofran) Confirm Administered Dose 8 mg .ROUTE .STK-MED ONE Stop: 09/16/18 10:37 Propofol (Diprivan 20 Ml) Confirm Administered Dose 200 mg .ROUTE .STK-MED ONE Stop: 09/16/18 10:38 - Exam General: Alert, Oriented, Cooperative Lungs: Normal Respiratory Effort Extremities: Redness (is improving on the right hand. Less rubor and much less swelling. Some progression proximal as expected from the washout and immune reaction and elevation, but much improved distally and overall. ) Skin: Warm, Dry Wound/Incisions: Healing Well, Drainage (serous drainage - no reji purulence - dishwater type of appearance. ) Neurological: No New Focal Deficit Psy/Mental Status: Alert, Normal Affect, Normal Mood - Problem List & Annotations (1) Cellulitis SNOMED Code(s): 825721704 Code(s): L03.90 - CELLULITIS, UNSPECIFIED Status: Acute Current Visit: Yes Qualifiers: Site of cellulitis: extremity Site of cellulitis of extremity: upper extremity Laterality: right Qualified Code(s): L03.113 - Cellulitis of right upper limb - Problem List Review Problem List Initiated/Reviewed/Updated: Yes - My Orders Last 24 Hours: My Active Orders 09/16/18 10:33 CULTURE ANAEROBIC [RM] Routine CULTURE WOUND [RM] Routine GRAM STAIN [RM] Routine 09/16/18 20:00 Dressing Change [Wound Care] [RC] Q12H - Assessment Assessment:: clinically improving picture. Likely strep infection given OR findings. Would continue current regimen and home possible tomorrow at best should labs follow his clinical picture. - Plan Plan:: 33 yo male admitted for right hand cellutlits pod 1 I and D of the tenosynovitis like infection likely strep and would continue antibitoics and reevalautaion of white count tomorrow - not unusual to see elevation of the WBC post surgery in a washout like this. anticipate continued clinical improvement and can transition possibly tomorrow to a pcn based regiment for presumed strep. negative cultures show likely on appropriate antibiotics and can continue for now until am labs confirm. elevation pain control
[2018-09-17] MEDS: diphenhydrAMINE 25 MG Cap PO PRN ×2 (12:19→22:23)
[2018-09-18] MEDS: Piperacillin/Tazobactam 3.375 GM in Sodium Chloride 0.9% 50 ML IV SCH ×2 (05:19→11:23)
[2018-09-18 06:18] LABS: CHLORIDE,CL 108 mmol/L (98-107); SODIUM,NA 144 mmol/L (136-148)
--- NOTE | 2018-09-18 08:52 | PCM.PN ---
- General Info Date of Service: 09/18/18 Admission Dx/Problem (Free Text): Admission Diagnosis/Problem Admission Diagnosis/Problem Cellulitis and hand tenosynovitis - Patient Data Vitals - Most Recent: Last Vital Signs Temp 98.5 F 09/18/18 07:57 Pulse 65 09/18/18 07:57 Resp 16 09/18/18 07:57 BP 129/67 09/18/18 07:57 Pulse Ox 96 09/18/18 07:57 Weight - Most Recent: 77.7 kg I&O - Last 24 Hours: Intake & Output 09/17/18 09/18/18 09/18/18 22:59 06:59 14:59 Intake Total 1816 1410 300 Output Total 2250 1475 Balance -434 -65 300 Lab Results Last 24 Hours: Laboratory Results - last 24 hr 09/17/18 09/18/18 09/18/18 Range/Units 12:05 05:17 05:17 WBC 16.71 H (4.0-11.0) K/uL RBC 4.51 (4.50-5.90) M/uL Hgb 12.6 L (13.0-17.0) g/dL Hct 38.7 (38.0-50.0) % MCV 85.8 (80.0-98.0) fL MCH 27.9 (27.0-32.0) pg MCHC 32.6 (31.0-37.0) g/dL RDW Std Deviation 43.7 (28.0-62.0) fl RDW Coeff of Lele 14 (11.0-15.0) % Plt Count 279 (150-400) K/uL MPV 9.20 (7.40-12.00) fL Add Manual Diff YES Neutrophils % (Manual) 77 (48.0-80.0) % Lymphocytes % (Manual) 17 (16.0-40.0) % Monocytes % (Manual) 5 (0.0-15.0) % Eosinophils % (Manual) 1 (0.0-7.0) % Nucleated RBC % 0.0 /100WBC Absolute Seg Neuts 12.9 H (1.4-5.7) Lymphocytes # (Manual) 2.8 H (0.6-2.4) Monocytes # (Manual) 0.8 (0.0-0.8) Eosinophils # (Manual) 0.2 (0.0-0.7) Nucleated RBCs # 0 K/uL Sodium 144 (136-148) mmol/L Potassium 4.1 (3.5-5.1) mmol/L Chloride 108 H (98-107) mmol/L Carbon Dioxide 29.0 (21.0-32.0) mmol/L BUN 13 (7.0-18.0) mg/dL Creatinine 1.0 (0.8-1.3) mg/dL Est Cr Clr Drug Dosing 116.55 mL/min Estimated GFR (MDRD) > 60.0 ml/min Glucose 88 (74-106) mg/dL Calcium 8.4 L (8.5-10.1) mg/dL Vancomycin Trough 4.0 L (5.0-10.0) ug/mL Tim Results Last 24 Hours: Microbiology 09/15/18 04:20 Aerobic Blood Culture - Preliminary Blood - Venous - Lab Draw NO GROWTH AFTER 3 DAYS Anaerobic Blood Culture - Preliminary NO GROWTH AFTER 3 DAYS 09/15/18 04:10 Aerobic Blood Culture - Preliminary Blood - Venous NO GROWTH AFTER 3 DAYS Anaerobic Blood Culture - Preliminary NO GROWTH AFTER 3 DAYS 09/16/18 10:33 Gram Stain - Final Hand, Right Wound Culture - Preliminary NO GROWTH AFTER 1 DAY Med Orders - Current: Current Medications Hydrocodone Bitart/Acetaminophen ([place] 325-5 Mg) 2 tab PO Q4H PRN PRN Reason: Pain Last Admin: 09/17/18 22:24 Dose: 2 tab Albuterol (Proventil Neb Soln) 2.5 mg NEB Q6HRRT PRN PRN Reason: Wheezing Atropine Sulfate (Atropine 0.1 Mg/Ml) 0.4 mg IVPUSH Q5M PRN PRN Reason: Bradycardia Diphenhydramine HCl (Benadryl) 25 mg PO Q6H PRN PRN Reason: Itching Last Admin: 09/17/18 22:23 Dose: 25 mg Hydralazine HCl (Apresoline) 10 mg IVPUSH ONETIME PRN PRN Reason: Hypertension Hydralazine HCl (Apresoline) 5 mg IVPUSH ONETIME PRN PRN Reason: Hypertension Piperacillin Sod/Tazobactam (Sod 3.375 gm/ Sodium Chloride) 50 mls @ 100 mls/ hr IV Q6H [facility] Last Admin: 09/18/18 05:19 Dose: 100 mls/hr Vancomycin HCl 1 gm/ Sodium (Chloride) 250 mls @ 250 mls/hr IV Q8H [facility] Last Admin: 09/18/18 05:52 Dose: 250 mls/hr Meperidine HCl (Demerol) 12.5 mg IVPUSH ONETIME PRN PRN Reason: Shivering Meperidine HCl (Demerol) 25 mg IV ONETIME PRN PRN Reason: Shivering Metoclopramide HCl (Reglan) 10 mg IVPUSH ONETIME PRN PRN Reason: Nausea Morphine Sulfate (Morphine) 1 mg IVPUSH Q2H PRN PRN Reason: Pain (severe 7-10) Last Admin: 09/16/18 07:27 Dose: 1 mg Naloxone HCl (Narcan) 0.1 mg IVPUSH ONETIME PRN PRN Reason: Respiratory Depression Ondansetron HCl (Zofran) 8 mg IVPUSH ONETIME PRN PRN Reason: Nausea Promethazine HCl (Phenergan) 12.5 mg IM ONETIME PRN PRN Reason: Nausea Scopolamine (Transderm-Scop) 1.5 mg TRDERM Q72H PRN PRN Reason: Nausea Sodium Chloride (Saline Flush) 10 ml FLUSH ASDIRECTED PRN PRN Reason: Keep Vein Open Sodium Chloride (Saline Flush) 2.5 ml FLUSH ASDIRECTED PRN PRN Reason: Keep Vein Open Vancomycin HCl (Pharmacy To Dose - Vancomycin) 1 dose .XX ASDIRECTED [facility] Discontinued Medications Acetaminophen (Tylenol) 650 mg PO NOW ONE Stop: 09/16/18 12:12 Last Admin: 09/16/18 13:58 Dose: Not Given Hydrocodone Bitart/Acetaminophen ([place] 325-5 Mg) 1 tab PO Q4H PRN PRN Reason: Pain Hydrocodone Bitart/Acetaminophen ([place] 325-5 Mg) 2 tab PO Q6H PRN PRN Reason: Pain (moderate 4-6) Bupivacaine HCl/Epinephrine Bitart ([place] 0.25%/Epinephrine 1:200,000) Confirm Administered Dose 20 ml .ROUTE .STK-MED ONE Stop: 09/16/18 10:16 Dexamethasone (Dexamethasone) Confirm Administered Dose 20 mg .ROUTE .STK-MED ONE Stop: 09/16/18 10:37 Diphtheria/Tetanus/Acell Pertussis (Adacel) 0.5 ml IM .ONCE ONE Stop: 09/15/18 04:02 Last Admin: 09/15/18 04:25 Dose: 0.5 ml Fentanyl (Sublimaze) Confirm Administered Dose 100 mcg .ROUTE .STK-MED ONE Stop: 09/16/18 10:38 Fentanyl (Sublimaze) 50 mcg IVPUSH Q5M PRN PRN Reason: Pain (severe 7-10) Stop: 09/17/18 12:11 Hydromorphone HCl (Dilaudid) 1 mg IVPUSH ONETIME ONE Stop: 09/15/18 05:30 Last Admin: 09/15/18 05:34 Dose: 1 mg Hydromorphone HCl (Dilaudid) 0.25 mg IVPUSH Q10M PRN PRN Reason: Pain (severe 7-10) Stop: 09/17/18 12:11 Sodium Chloride (Normal Saline) 1,000 mls @ 999 mls/hr IV STAT ONE Stop: 09/15/18 05:01 Last Admin: 09/15/18 04:15 Dose: 999 mls/hr Vancomycin HCl 1 gm/ Sodium (Chloride) 250 mls @ 250 mls/hr IV ONETIME ONE Stop: 09/15/18 05:00 Last Admin: 09/15/18 04:24 Dose: 250 mls/hr Piperacillin Sod/Tazobactam (Sod 3.375 gm/ Sodium Chloride) 50 mls @ 100 mls/ hr IV ONETIME ONE Stop: 09/15/18 04:35 Last Admin: 09/15/18 05:26 Dose: 100 mls/hr Sodium Chloride (Normal Saline) 1,000 mls @ 125 mls/hr IV ASDIRECTED [facility] Last Admin: 09/17/18 09:37 Dose: 125 mls/hr Vancomycin HCl 1 gm/ Sodium (Chloride) 250 mls @ 250 mls/hr IV Q12H [facility] Last Admin: 09/17/18 17:59 Dose: Not Given Ketorolac Tromethamine (Toradol) 30 mg IVPUSH ONETIME ONE Stop: 09/15/18 04:02 Last Admin: 09/15/18 04:24 Dose: 30 mg Ketorolac Tromethamine (Toradol) 30 mg IVPUSH ONETIME ONE Stop: 09/15/18 14:51 Last Admin: 09/15/18 15:06 Dose: 30 mg Ketorolac Tromethamine (Toradol) Confirm Administered Dose 30 mg .ROUTE .STK- MED ONE Stop: 09/16/18 10:37 Labetalol HCl (Normodyne) 10 mg IVPUSH Q6H PRN PRN Reason: Hypertension Stop: 09/17/18 12:11 Lidocaine (Xylocaine-Mpf 2%) Confirm Administered Dose 5 ml .ROUTE .STK-MED ONE Stop: 09/16/18 10:37 Lorazepam (Ativan) 1 mg IVPUSH ONETIME ONE Stop: 09/15/18 04:02 Last Admin: 09/15/18 04:23 Dose: 1 mg Midazolam HCl (Versed 1 Mg/Ml) Confirm Administered Dose 2 mg .ROUTE .STK-MED ONE Stop: 09/16/18 10:38 Morphine Sulfate (Morphine) 2 mg IVPUSH ONETIME ONE Stop: 09/15/18 04:02 Last Admin: 09/15/18 04:23 Dose: 2 mg Morphine Sulfate (Morphine) 4 mg IVPUSH Q10M PRN PRN Reason: Pain (severe 7-10) Stop: 09/17/18 12:11 Ondansetron HCl (Zofran) Confirm Administered Dose 8 mg .ROUTE .STK-MED ONE Stop: 09/16/18 10:37 Propofol (Diprivan 20 Ml) Confirm Administered Dose 200 mg .ROUTE .STK-MED ONE Stop: 09/16/18 10:38 - Assessment Assessment:: clinically improving picture. Likely strep infection given OR findings. Would continue current regimen and home possible tomorrow at best should labs follow his clinical picture. - Plan Plan:: 33 yo male admitted for right hand cellutlits pod 1 I and D of the tenosynovitis like infection likely strep and would continue antibitoics and reevalautaion of white count tomorrow - not unusual to see elevation of the WBC post surgery in a washout like this. anticipate continued clinical improvement and can transition possibly tomorrow to a pcn based regiment for presumed strep. negative cultures show likely on appropriate antibiotics and can continue for now until am labs confirm. elevation pain control
[2018-09-18] MEDS: Acetaminophen/HYDROcodone 325-5 MG Tab PO PRN (11:40)
[2018-09-18 11:50] VITALS: BP 126/61
--- NOTE | 2018-09-18 12:35 | PCM.PN ---
- General Info Date of Service: 09/18/18 Subjective Update: The patient is improving and we discussed hand stiffness and aggressive motion now that we have improvement to prevent scar or adhesions of the tendons. All questions answered. he would like to go home. We discussed that without culture growth we will have to select antibiotics based on most likely infectious process. Given the recent infections we have seen and the clinical appearance of dishwater like fluid - I would recommend strep coverage as the highest likelihood followed by Functional Status: Reports: Pain Controlled - Review of Systems General: Reports: No Symptoms HEENT: Reports: No Symptoms Pulmonary: Reports: No Symptoms Musculoskeletal: Reports: Hand Pain (stiffness more than pain today and continued improvements. ) Skin: Reports: Other (redness much improved on macho hand. No signs of volar infection or spread. ) Neurological: Denies: Numbness, Tingling Psychiatric: Reports: No Symptoms - Patient Data Vitals - Most Recent: Last Vital Signs Temp 96.6 F 09/18/18 11:49 Pulse 70 09/18/18 11:49 Resp 22 H 09/18/18 11:49 BP 126/61 09/18/18 11:49 Pulse Ox 97 09/18/18 11:49 Weight - Most Recent: 171 lb 4.787 oz I&O - Last 24 Hours: Intake & Output 09/17/18 09/18/18 09/18/18 23:59 07:59 15:59 Intake Total 1816 1710 Output Total 2250 1475 Balance -434 235 Lab Results Last 24 Hours: Laboratory Results - last 24 hr 09/17/18 09/18/18 09/18/18 Range/Units 12:05 05:17 05:17 WBC 16.71 H (4.0-11.0) K/uL RBC 4.51 (4.50-5.90) M/uL Hgb 12.6 L (13.0-17.0) g/dL Hct 38.7 (38.0-50.0) % MCV 85.8 (80.0-98.0) fL MCH 27.9 (27.0-32.0) pg MCHC 32.6 (31.0-37.0) g/dL RDW Std Deviation 43.7 (28.0-62.0) fl RDW Coeff of Lele 14 (11.0-15.0) % Plt Count 279 (150-400) K/uL MPV 9.20 (7.40-12.00) fL Add Manual Diff YES Neutrophils % (Manual) 77 (48.0-80.0) % Lymphocytes % (Manual) 17 (16.0-40.0) % Monocytes % (Manual) 5 (0.0-15.0) % Eosinophils % (Manual) 1 (0.0-7.0) % Nucleated RBC % 0.0 /100WBC Absolute Seg Neuts 12.9 H (1.4-5.7) Lymphocytes # (Manual) 2.8 H (0.6-2.4) Monocytes # (Manual) 0.8 (0.0-0.8) Eosinophils # (Manual) 0.2 (0.0-0.7) Nucleated RBCs # 0 K/uL Sodium 144 (136-148) mmol/L Potassium 4.1 (3.5-5.1) mmol/L Chloride 108 H (98-107) mmol/L Carbon Dioxide 29.0 (21.0-32.0) mmol/L BUN 13 (7.0-18.0) mg/dL Creatinine 1.0 (0.8-1.3) mg/dL Est Cr Clr Drug Dosing 116.55 mL/min Estimated GFR (MDRD) > 60.0 ml/min Glucose 88 (74-106) mg/dL Calcium 8.4 L (8.5-10.1) mg/dL Vancomycin Trough 4.0 L (5.0-10.0) ug/mL Tim Results Last 24 Hours: Microbiology 09/16/18 10:33 Gram Stain - Final Hand, Right Wound Culture - Final No Growth 09/15/18 04:20 Aerobic Blood Culture - Preliminary Blood - Venous - Lab Draw NO GROWTH AFTER 3 DAYS Anaerobic Blood Culture - Preliminary NO GROWTH AFTER 3 DAYS 09/15/18 04:10 Aerobic Blood Culture - Preliminary Blood - Venous NO GROWTH AFTER 3 DAYS Anaerobic Blood Culture - Preliminary NO GROWTH AFTER 3 DAYS Med Orders - Current: Current Medications Hydrocodone Bitart/Acetaminophen ([place] 325-5 Mg) 2 tab PO Q4H PRN PRN Reason: Pain Last Admin: 09/18/18 11:40 Dose: 2 tab Albuterol (Proventil Neb Soln) 2.5 mg NEB Q6HRRT PRN PRN Reason: Wheezing Atropine Sulfate (Atropine 0.1 Mg/Ml) 0.4 mg IVPUSH Q5M PRN PRN Reason: Bradycardia Diphenhydramine HCl (Benadryl) 25 mg PO Q6H PRN PRN Reason: Itching Last Admin: 09/17/18 22:23 Dose: 25 mg Hydralazine HCl (Apresoline) 10 mg IVPUSH ONETIME PRN PRN Reason: Hypertension Hydralazine HCl (Apresoline) 5 mg IVPUSH ONETIME PRN PRN Reason: Hypertension Piperacillin Sod/Tazobactam (Sod 3.375 gm/ Sodium Chloride) 50 mls @ 100 mls/ hr IV Q6H [facility] Last Admin: 09/18/18 11:23 Dose: 100 mls/hr Vancomycin HCl 1 gm/ Sodium (Chloride) 250 mls @ 250 mls/hr IV Q8H [facility] Last Admin: 09/18/18 05:52 Dose: 250 mls/hr Meperidine HCl (Demerol) 12.5 mg IVPUSH ONETIME PRN PRN Reason: Shivering Meperidine HCl (Demerol) 25 mg IV ONETIME PRN PRN Reason: Shivering Metoclopramide HCl (Reglan) 10 mg IVPUSH ONETIME PRN PRN Reason: Nausea Morphine Sulfate (Morphine) 1 mg IVPUSH Q2H PRN PRN Reason: Pain (severe 7-10) Last Admin: 09/16/18 07:27 Dose: 1 mg Naloxone HCl (Narcan) 0.1 mg IVPUSH ONETIME PRN PRN Reason: Respiratory Depression Ondansetron HCl (Zofran) 8 mg IVPUSH ONETIME PRN PRN Reason: Nausea Promethazine HCl (Phenergan) 12.5 mg IM ONETIME PRN PRN Reason: Nausea Scopolamine (Transderm-Scop) 1.5 mg TRDERM Q72H PRN PRN Reason: Nausea Sodium Chloride (Saline Flush) 10 ml FLUSH ASDIRECTED PRN PRN Reason: Keep Vein Open Sodium Chloride (Saline Flush) 2.5 ml FLUSH ASDIRECTED PRN PRN Reason: Keep Vein Open Vancomycin HCl (Pharmacy To Dose - Vancomycin) 1 dose .XX ASDIRECTED [facility] Discontinued Medications Acetaminophen (Tylenol) 650 mg PO NOW ONE Stop: 09/16/18 12:12 Last Admin: 09/16/18 13:58 Dose: Not Given Hydrocodone Bitart/Acetaminophen ([place] 325-5 Mg) 1 tab PO Q4H PRN PRN Reason: Pain Hydrocodone Bitart/Acetaminophen ([place] 325-5 Mg) 2 tab PO Q6H PRN PRN Reason: Pain (moderate 4-6) Bupivacaine HCl/Epinephrine Bitart ([place] 0.25%/Epinephrine 1:200,000) Confirm Administered Dose 20 ml .ROUTE .STK-MED ONE Stop: 09/16/18 10:16 Dexamethasone (Dexamethasone) Confirm Administered Dose 20 mg .ROUTE .STK-MED ONE Stop: 09/16/18 10:37 Diphtheria/Tetanus/Acell Pertussis (Adacel) 0.5 ml IM .ONCE ONE Stop: 09/15/18 04:02 Last Admin: 09/15/18 04:25 Dose: 0.5 ml Fentanyl (Sublimaze) Confirm Administered Dose 100 mcg .ROUTE .STK-MED ONE Stop: 09/16/18 10:38 Fentanyl (Sublimaze) 50 mcg IVPUSH Q5M PRN PRN Reason: Pain (severe 7-10) Stop: 09/17/18 12:11 Hydromorphone HCl (Dilaudid) 1 mg IVPUSH ONETIME ONE Stop: 09/15/18 05:30 Last Admin: 09/15/18 05:34 Dose: 1 mg Hydromorphone HCl (Dilaudid) 0.25 mg IVPUSH Q10M PRN PRN Reason: Pain (severe 7-10) Stop: 09/17/18 12:11 Sodium Chloride (Normal Saline) 1,000 mls @ 999 mls/hr IV STAT ONE Stop: 09/15/18 05:01 Last Admin: 09/15/18 04:15 Dose: 999 mls/hr Vancomycin HCl 1 gm/ Sodium (Chloride) 250 mls @ 250 mls/hr IV ONETIME ONE Stop: 09/15/18 05:00 Last Admin: 09/15/18 04:24 Dose: 250 mls/hr Piperacillin Sod/Tazobactam (Sod 3.375 gm/ Sodium Chloride) 50 mls @ 100 mls/ hr IV ONETIME ONE Stop: 09/15/18 04:35 Last Admin: 09/15/18 05:26 Dose: 100 mls/hr Sodium Chloride (Normal Saline) 1,000 mls @ 125 mls/hr IV ASDIRECTED [facility] Last Admin: 09/17/18 09:37 Dose: 125 mls/hr Vancomycin HCl 1 gm/ Sodium (Chloride) 250 mls @ 250 mls/hr IV Q12H [facility] Last Admin: 09/17/18 17:59 Dose: Not Given Ketorolac Tromethamine (Toradol) 30 mg IVPUSH ONETIME ONE Stop: 09/15/18 04:02 Last Admin: 09/15/18 04:24 Dose: 30 mg Ketorolac Tromethamine (Toradol) 30 mg IVPUSH ONETIME ONE Stop: 09/15/18 14:51 Last Admin: 09/15/18 15:06 Dose: 30 mg Ketorolac Tromethamine (Toradol) Confirm Administered Dose 30 mg .ROUTE .STK- MED ONE Stop: 09/16/18 10:37 Labetalol HCl (Normodyne) 10 mg IVPUSH Q6H PRN PRN Reason: Hypertension Stop: 09/17/18 12:11 Lidocaine (Xylocaine-Mpf 2%) Confirm Administered Dose 5 ml .ROUTE .STK-MED ONE Stop: 09/16/18 10:37 Lorazepam (Ativan) 1 mg IVPUSH ONETIME ONE Stop: 09/15/18 04:02 Last Admin: 09/15/18 04:23 Dose: 1 mg Midazolam HCl (Versed 1 Mg/Ml) Confirm Administered Dose 2 mg .ROUTE .STK-MED ONE Stop: 09/16/18 10:38 Morphine Sulfate (Morphine) 2 mg IVPUSH ONETIME ONE Stop: 09/15/18 04:02 Last Admin: 09/15/18 04:23 Dose: 2 mg Morphine Sulfate (Morphine) 4 mg IVPUSH Q10M PRN PRN Reason: Pain (severe 7-10) Stop: 09/17/18 12:11 Ondansetron HCl (Zofran) Confirm Administered Dose 8 mg .ROUTE .STK-MED ONE Stop: 09/16/18 10:37 Propofol (Diprivan 20 Ml) Confirm Administered Dose 200 mg .ROUTE .STK-MED ONE Stop: 09/16/18 10:38 - Exam General: Alert, Oriented, Cooperative HEENT: EOMI Extremities: Redness (is improving significantly. No signs of additioanl spread. No current drainage. ) Skin: Warm, Dry Wound/Incisions: No Drainage, Erythema Improving Neurological: No New Focal Deficit - Problem List & Annotations (1) Cellulitis SNOMED Code(s): 464960654 Code(s): L03.90 - CELLULITIS, UNSPECIFIED Status: Acute Current Visit: Yes Qualifiers: Site of cellulitis: extremity Site of cellulitis of extremity: upper extremity Laterality: right Qualified Code(s): L03.113 - Cellulitis of right upper limb - Problem List Review Problem List Initiated/Reviewed/Updated: Yes - My Orders Last 24 Hours: My Active Orders 09/17/18 11:51 diphenhydrAMINE [Benadryl] 25 mg PO Q6H PRN - Plan Plan:: we discussed discharge and he is anxious to leave. No growth on cultures so we will treat for strep as the most likely with staph possibility as well. We discussed Augmentin and will work to get that set for him. All questions answered and wound care instructions of daily washing well and keeping covered with a nonstick and gauze. he can start with a band-aid once no drainage. Follow up with me in 10 days for recheck - call sooner with any issues or concerns.
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
== END 2018-09-18 13:45 | disposition home or self-care (01) | DRG 513 ==
LOC: MW.ED 03:40 → MW.MS 05:40
PROVIDERS: ADMIT Internal Medicine; ATTEND Internal Medicine
PROC: 3E0234Z Introduction of Serum, Toxoid and Vaccine into Muscle, Percutaneous Approach (ICD-10-PCS; 2018-09-15)
PROC: 0LB70ZZ Excision of Right Hand Tendon, Open Approach (ICD-10-PCS; principal; 2018-09-16)
DX: M65.141 Other infective (teno)synovitis, right hand (principal); L03.113 Cellulitis of right upper limb; F15.10 Other stimulant abuse, uncomplicated; F12.10 Cannabis abuse, uncomplicated; F17.210 Nicotine dependence, cigarettes, uncomplicated; B95.5 Unspecified streptococcus as the cause of diseases classified elsewhere; R79.89 Other specified abnormal findings of blood chemistry; Z23 Encounter for immunization; Z86.14 Personal history of Methicillin resistant Staphylococcus aureus infection
CPT/HCPCS: 36415; 71045; 71045-26; 73130-26-RT; 73130-RT; 80048; 80053; 80202; 80305-QW; 81003; 83605; 84484; 85025; 85610; 87040; 87070; 87075; 87077; 87186; 87205; 90471; 90715; 93005; 96365; 96367; 96375; 99284; 99284-25; A9270-GY; J1100; J1170; J1885; J2001; J2060; J2250; J2270; J2405; J2543; J2704; J3010; J3370; J3490; J7040; J7050

== ENCOUNTER 2018-09-26 16:53 | Emergency (ER) | payer SELFPAY ==
[2018-09-26 17:04] VITALS: BP 118/41
--- NOTE | 2018-09-26 17:06 | EDM.PDOC ---
ED HPI GENERAL MEDICAL PROBLEM - General Chief Complaint: Upper Extremity Injury/Pain Stated Complaint: RIGHT HAND PAIN Time Seen by Provider: 09/26/18 17:01 - History of Present Illness INITIAL COMMENTS - FREE TEXT/NARRATIVE: HISTORY AND PHYSICAL: History of present illness: Patient is a 33-year-old white male presents with a concern of recent hand surgery related to infection and states he slipped and extended his hand with some mild dehiscence and bleeding that is controlled on arrival. He's had no fever chills nausea vomiting or other complaints he has been compliant with his antibiotics Review of systems: As per history of present illness and below otherwise all systems reviewed and negative. Past medical history: As per history of present illness and as reviewed below otherwise noncontributory. Surgical history: As per history of present illness and as reviewed below otherwise noncontributory. Social history: No reported history of drug or alcohol abuse. Family history: As per history of present illness and as reviewed below otherwise noncontributory. Physical exam: HEENT: Atraumatic, normocephalic, pupils reactive, negative for conjunctival pallor or scleral icterus, mucous membranes moist, throat clear, neck supple, nontender, trachea midline. Lungs: Clear to auscultation, breath sounds equal bilaterally, chest nontender. Heart: S1S2, regular, negative for clicks, rubs, or JVD. Abdomen: Soft, nondistended, nontender. Negative for masses or hepatosplenomegaly. Negative for costovertebral tenderness. Pelvis: Stable nontender. Genitourinary: Deferred. Rectal: Deferred. Extremities: Right hand has some mild erythema and a wound with minimal dehiscence no active bleeding neurovascular exam CMS is unremarkable Neuro: Awake, alert, oriented. Cranial nerves II through XII unremarkable. Cerebellum unremarkable. Motor and sensory unremarkable throughout. Exam nonfocal. Diagnostics: None Therapeutics: Hand was redressed Impression: Him or one medical screening exam #2 history of recent hand surgery secondary to infection Definitive disposition and diagnosis as appropriate pending reevaluation and review of above. - Related Data Allergies Allergy/AdvReac Type Severity Reaction Status Date / Time No Known Allergies Allergy Verified 09/26/18 17:00 Home Meds: Home Meds Amoxicillin/Potassium Clav [Augmentin 875-125 Tablet] 1 each PO BID #20 tablet 09/18/18 [Rx] Past Medical History - Past Health History Medical/Surgical History: Denies Medical/Surgical History HEENT History: Reports: None Cardiovascular History: Reports: None Respiratory History: Reports: None Gastrointestinal History: Reports: None Genitourinary History: Reports: None Musculoskeletal History: Reports: None Neurological History: Reports: None Psychiatric History: Reports: ADHD (as a child), Addiction Endocrine/Metabolic History: Reports: None Hematologic History: Reports: None Immunologic History: Reports: None Oncologic (Cancer) History: Reports: None Dermatologic History: Reports: None - Infectious Disease History Infectious Disease History: Reports: MRSA - Past Surgical History Musculoskeletal Surgical History: Reports: Other (See Below) Other Musculoskeletal Surgeries/Procedures:: hand. states bilat tendon repair Social & Family History - Family History Family Medical History: Noncontributory Oncologic: Reports: Other (See Below) Other Oncologic Family History: cancer - Caffeine Use Caffeine Use: Reports: Coffee Review of Systems - Review of Systems Review Of Systems: ROS reveals no pertinent complaints other than HPI. ED EXAM, GENERAL - Physical Exam Exam: See Below (See dictation) Departure - Departure Time of Disposition: 17:05 Disposition: Home, Self-Care 01 Condition: Good Clinical Impression: Encounter for medical screening examination - Discharge Information Referrals: PCP,None [Primary Care Provider] - Additional Instructions: The following information is given to patients seen in the emergency department who are being discharged to home. This information is to outline your options for follow-up care. We provide all patients seen in our emergency department with a follow-up referral. The need for follow-up, as well as the timing and circumstances, are variable depending upon the specifics of your emergency department visit. If you don't have a primary care physician on staff, we will provide you with a referral. We always advise you to contact your personal physician following an emergency department visit to inform them of the circumstance of the visit and for follow-up with them and/or the need for any referrals to a consulting specialist. The emergency department will also refer you to a specialist when appropriate. This referral assures that you have the opportunity for followup care with a specialist. All of these measure are taken in an effort to provide you with optimal care, which includes your followup. Under all circumstances we always encourage you to contact your private physician who remains a resource for coordinating your care. When calling for followup care, please make the office aware that this follow-up is from your recent emergency room visit. If for any reason you are refused follow-up, please contact the [facility] emergency department at and asked to speak to the emergency department charge nurse. Continue antibiotics as prescribed elevation as discussed Motrin/Tylenol as directed follow-up hand surgeon
[2018-09-26] MEDS: Ketorolac 60 MG/2 ML SDV IM ONE (17:18)
== END 2018-09-26 17:20 | disposition home or self-care (01) ==
LOC: MW.ED 16:53
DX: T81.33XA Disruption of traumatic injury wound repair, initial encounter (principal)
CPT/HCPCS: 96372; 99283; J1885; 99282

== ENCOUNTER 2018-09-26 19:08 | Emergency (ER) | payer SELFPAY ==
[2018-09-26 19:13] VITALS: BP 126/73
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
== END 2018-09-26 19:23 ==
LOC: MW.ED 19:08
DX: Z02.89 Encounter for other administrative examinations (principal); Z87.891 Personal history of nicotine dependence
CPT/HCPCS: 99282

== ENCOUNTER 2018-09-29 22:02 | Emergency (ER) | payer SELFPAY ==
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
[2018-09-29 23:01] VITALS: BP 131/58
== END 2018-09-29 23:01 | disposition home or self-care (01) ==
LOC: MW.ED 22:02 → EEVIPCON 22:02 → MW.ED 23:01
DX: L03.113 Cellulitis of right upper limb (principal); Z79.899 Other long term (current) drug therapy; Z87.891 Personal history of nicotine dependence
CPT/HCPCS: 87070; 87077; 87186; 99283